=== PATIENT | female | born 1985 | race Caucasian/White ===

== ENCOUNTER 2019-06-17 14:22 | Emergency (ER) | payer OTHER, MEDICAID, SELFPAY ==
[2019-06-17 14:24] VITALS: BP 149/93; PULSE 78; RESP 15; TEMP 36.9; O2SAT 99; BMI 39.9
== END 2019-06-17 18:36 | disposition left against medical advice (07) ==
PROVIDERS: Emergency Provider Emergency Medicine
CPT/HCPCS: 99281

== ENCOUNTER 2021-01-31 21:24 | Emergency (ER) | payer OTHER, MEDICAID, SELFPAY ==
[2021-01-31 21:26] VITALS: BP 134/62; PULSE 92; RESP 17; TEMP 36.1; O2SAT 99; BMI 42.9
--- NOTE | 2021-01-31 22:15 | DI.US.S_ITS ---
PROCEDURE: US PERIPH VENOUS LOW EXTREM RT INDICATIONS: right leg pain TECHNIQUE: Real-time imaging, as well as color and pulse Doppler interrogation, were performed of the lower extremity deep veins from the inguinal ligament to the popliteal fossa. COMPARISON: None. FINDINGS: The common femoral, femoral and popliteal veins are normally compressible, and free of intraluminal thrombus. Color and pulse Doppler demonstrate normal phasic intraluminal flow. There is normal augmentation response to distal compression maneuver. No sonographic abnormalities identified in the soft tissues of the area of concern involving the anterior and anterolateral aspect of the right lower extremity. IMPRESSION: Negative for deep venous thrombosis of the right lower extremity. Dictated by: Jp Solitario M.D. on 01/31/2021 at 23:15 Approved by: Jp Solitario M.D. on 01/31/2021 at 23:16
--- NOTE | 2021-01-31 22:21 | ED.EXTPRO ---
HPI - Extremity Problem General Chief complaint: Extremity Problem,Nontraumatic Stated complaint: sent to r/o blood clot Time Seen by Provider: 01/31/21 22:07 Source: patient Mode of arrival: Ambulatory Limitations: no limitations History of Present Illness HPI Narrative: 35-year-old female nonsmoker presents from the [facility] for evaluation of pain and swelling of her lateral and posterior right knee in the absence of injury. Her providers were concerned about the possibility of a DVT and she was sent here for evaluation. As stated, she denies any specific injury. She states that she has been having symptoms for upwards of 2 weeks and includes pain and numbness along her right lateral thigh, behind her knee and down the right side of her calf. She admits that when she stands she notes swelling in her knee. She has increased pain with ambulation. She denies any history of back pain. She denies fever or chills. She has had no trauma. She denies trouble with control of bowel or bladder. She denies any footdrop. She denies any history of blood clot. She has had no systemic findings such as fever, chills nor nausea or vomiting. Related Data Home Medications Medication Instructions Recorded Confirmed colchicine 0.6 mg capsule 0.6 mg PO DAILY 09/06/20 01/29/21 duloxetine 60 mg capsule,delayed 60 mg PO DAILY 09/06/20 01/29/21 release famotidine 10 mg tablet (Pepcid AC) 10 mg PO DAILY 09/06/20 01/29/21 lamotrigine 150 mg tablet 150 mg PO BID tab 01/29/21 01/29/21 metoprolol tartrate 25 mg tablet 25 mg PO BID 01/29/21 01/29/21 clonidine HCl 0.2 mg tablet 0.2 mg PO TID 01/31/21 01/31/21 meclizine 25 mg tablet 25 mg PO DAILY PRN tab 01/31/21 01/31/21 Allergies Allergy/AdvReac Type Severity Reaction Status Date / Time Penicillins Allergy Verified 01/31/21 21:26 Sulfa (Sulfonamide Allergy Verified 01/31/21 21:26 Antibiotics) cephalexin AdvReac nausea and Verified 01/31/21 21:26 vomiting doxycycline AdvReac nausea and Verified 01/31/21 21:26 vomiting Review of Systems Review of Systems Narrative: GENERAL: Denies chills, fatigue, malaise, fever, sweats. HEENT: Denies sinus pain, ear pain, sore throat, difficulty swallowing, dizziness. RESPIRATORY: Denies dyspnea, cough, wheezing, hemoptysis, sputum. CARDIOVASCULAR: Denies chest pain, palpitations, orthopnea, edema, GASTROINTESTINAL: Denies nausea, vomiting, abdominal pain, diarrhea, constipation, melena. : Denies dysuria, frequency, incontinence, hematuria, urinary retention. MUSCULOSKELETAL: See HPI SKIN: Denies rash, skin lesions, or other NEUROLOGIC: See HPI PSYCHIATRIC: No concerning psychosocial issues. 12 point review of systems is negative except for those stated above Patient History Social History Smoking Status: Never smoker Smoking Status: Never smoker alcohol intake frequency: holidays/special occasions only Substance Use Type: does not use and marijuana Exam Narrative Exam Narrative: GENERAL: [35 year old patient appears stated age. Well-developed patient, in mild distress. Anxious and tearful HEAD: Atraumatic. Normocephalic. EYES: Pupils equal round and reactive. Extraocular motions intact. No scleral icterus. No injection or drainage. ENT: Nose without bleeding, purulent drainage. Throat without erythema, tonsillar hypertrophy or exudate. Airway patent. NECK: Trachea midline. Non tender CARDIOVASCULAR: Regular rate and rhythm without murmurs, gallops, or rubs. RESPIRATORY: Clear to auscultation. Breath sounds equal bilaterally. No wheezes, rales, or rhonchi. GASTROINTESTINAL: Abdomen soft, non-tender, nondistended. EXTREMITIES: No edema or joint tenderness. BACK: Nontender without deformity or crepitance. No flank tenderness. NEURO: AOx3. SKIN: No rash or erythema of visible areas Initial Vital Signs Initial Vital Signs: Vital Signs Temperature 96.9 F L 01/31/21 21:26 Pulse Rate 92 H 01/31/21 21:26 Respiratory Rate 17 01/31/21 21:26 Blood Pressure 134/62 01/31/21 21:26 Pulse Oximetry 99 01/31/21 21:26 Course Orders Ordered: Discontinued Medications Prednisone (Prednisone 20 Mg Tablet) 40 mg PO NOW ONE Stop: 01/31/21 22:48 Last Admin: 01/31/21 23:06 Dose: Not Given Documented by: ATAYLOR Vital Signs Vital signs: Vital Signs - 8 hr 01/31/21 21:26 01/31/21 23:20 Temperature 96.9 F L Pulse Rate 92 H 110 H Respiratory Rate 17 22 Blood Pressure 134/62 169/110 H Pulse Oximetry 99 99 Discharge Plan Departure Patient Disposition: Home Clinical Impression: Acute right lumbar radiculopathy Instructions: DI for Lumbar Radiculopathy Activity Restrictions/Additional Instructions: *You have been diagnosed with [Right leg pain and tingling, likely a consequence of lumbar radiculopathy ] *What to do: *Please continue to take your regular medications as directed. [ ] New medication prescriptions sent to your pharmacy: [ ] [ ] New medication written as a paper prescription [ x] No new medications given *Please follow up with your primary care provider in 2-3 days, call for an appointment. Let them know you were seen in the Emergency Department and that we ask that you be seen in follow up. We will electronically transmit a record of today's note if your PCP is in our system *If you do not have a primary care provider please contact the [facility] Resource line at [phone]. They will ask some questions about your medical history and help get you set up with a doctor in the community. Please return to the emergency department for increased pain, lower extremity weakness, loss of control of bowel or bladder or other concerning symptoms Prescriptions: No Action duloxetine 60 mg capsule,delayed release(DR/EC) 60 mg PO DAILY RF: 0 famotidine [Pepcid AC] 10 mg tablet 10 mg PO DAILY RF: 0 colchicine 0.6 mg capsule 0.6 mg PO DAILY RF: 0 lamotrigine 150 mg tablet 150 mg PO BID RF: 0 metoprolol tartrate 25 mg tablet 25 mg PO BID RF: 0 meclizine 25 mg tablet 25 mg PO DAILY PRN (Reason: dizziness) RF: 0 clonidine HCl 0.2 mg tablet 0.2 mg PO TID RF: 0 Referrals: Ayush Bae MD [Primary Care Provider] -
[2021-01-31 23:20] VITALS: BP 169/110; PULSE 110; RESP 22; O2SAT 99
--- NOTE | 2021-02-01 00:47 | PC.NURSE ---
Went to discharge patient and Patient became quite upset in tears that we didn't do any more than just the u/s. unwilling to be discharged at this time.
== END 2021-02-01 01:17 | disposition home or self-care (01) ==
PROVIDERS: Emergency Provider Emergency Medicine; PCP Family Medicine
DX: M54.16 Radiculopathy, lumbar region (principal)
CPT/HCPCS: 93971; 99281; 99283

== ENCOUNTER → 2021-05-09 08:28 | Outpatient (CLI) | payer OTHER, MEDICAID, SELFPAY ==
[2021-05-09 19:33] LABS: Add Manual Diff / Slide Review NO; Basophils Absolute Auto 100 /uL (0-100); Eosinophils Absolute Auto 400 /uL (0-450); Eosinophils Percent Auto 5.8 % (2-4); Hematocrit 38.4 % (36-46); Lymphocytes Absolute Auto 2300 /uL (1100-4500); Lymphocytes Percent Auto 37.7 % (25-40); Mean Corpuscular HGB Conc 33.8 % (30-36); Mean Corpuscular Hemoglobin 30.1 PG (26-34); Mean Corpuscular Volume 89.1 fL (80-100); Monocytes Absolute Auto 500 /uL (0-900); Monocytes Percent Auto 8.4 % (3-14); Neutrophils Absolute Auto 2900 /uL (1500-7000); Neutrophils Percent Auto 47.1 % (50-75); Platelet Count 311 X10^3/uL (150-400); Red Cell Distribution Width 13.4 % (11.6-14.8); White Blood Cell Count 6.2 X10^3/uL (4.5-11.0)
[2021-05-09 19:40] LABS: Alanine Aminotransferase 17 IU/L (<35); Albumin Globulin Ratio 1.6 (1.0-2.8); Alkaline Phosphatase 48 U/L (38-126); Aspartate Aminotransferase 24 IU/L (14-36); BUN Creatinine Ratio 11.9 (6-22); Bilirubin Total 0.8 mg/dL (0.2-1.3); Blood Urea Nitrogen 8 mg/dL (7-17); Calcium 9.4 mg/dL (8.4-10.2); Carbon Dioxide 29 mmol/L (22-32); Chloride 100 mmol/L (98-107); Cholesterol 224 mg/dL (140-199); Estimated Glomerular Filt Rate > 60.0 mL/min (>60); Globulin 2.5 g/dL (1.7-4.1); Glucose 89 mg/dL (70-100); HDL Cholesterol 55 mg/dL (40-60); HEMOLYSIS < 15 (0-50); LDL Cholesterol Calculated 144 mg/dL (<100); Potassium 4.2 mmol/L (3.4-5.1); Sodium 136 mmol/L (137-145); Total Protein 6.5 g/dL (6.3-8.2); Triglycerides 127 mg/dL (35-150)
[2021-05-09 19:42] LABS: Hemoglobin A1C% w Est Avg Glu 5.3 % (4.0-6.0)
[2021-05-09 20:10] LABS: Thyroid Stimulating Hormone 0.922 uIU/mL (0.47-4.68)
[2021-05-09 20:13] LABS: Ferritin 23 ng/mL (6-137)
[2021-05-09 20:33] LABS: HIV 1 & 2 Ab/Ag 4th Gen Combo NEGATIVE (NEGATIVE); Hep C Virus Ab w/Reflex Quant NEGATIVE s/c (NEGATIVE)
[2021-05-09 20:45] LABS: Folate 9.8 ng/mL (2.76-20.0); Vitamin B12 > 1000 pg/mL (239-931)
== END ==
PROVIDERS: PCP Family Medicine
DX: G43.009 Migraine without aura, not intractable, without status migrainosus (principal); R42 Dizziness and giddiness; R53.83 Other fatigue
CPT/HCPCS: 80053; 80061; 82607; 82728; 82746; 83036; 84443; 85025; 86803; 87389

== ENCOUNTER → 2021-08-19 14:30 | Outpatient (CLI) | payer OTHER, MEDICAID, SELFPAY | PROVIDERS: PCP Family Medicine; Visit Provider Family Medicine | DX: J02.9 Acute pharyngitis, unspecified (principal) | CPT/HCPCS: 87070 ==

== ENCOUNTER → 2021-10-24 09:28 | Outpatient (CLI) | payer OTHER, MEDICAID, SELFPAY ==
--- NOTE | 2021-10-24 09:29 | DI.MRI.S_ITS ---
PROCEDURE: MR ABDOMEN WO/W CON INDICATIONS: right upper mid quadrant pain and mass TECHNIQUE: Coronal HASTE, axial 2D FLASH in- and [id number]; axial breath-hold T2 FSE. Dynamic axial VIBE during the administration of contrast; post-contrast coronal VIBE or 2D FLASH with fat saturation from the hepatic dome to the iliac crests. Optional diffusion weighted imaging and ADC may be performed. COMPARISON: [facility], CT, CT ANGIO CHEST ABDOMEN PELVIS, 04/14/2020, 12:32. [facility], CT, CT ABDOMEN PELVIS WITH CONTRAST, 06/04/2021, 16:46. FINDINGS: Image quality: Excellent. Lung bases: No basal pleural effusions. Solid organs: Liver background signal is unremarkable. 4.6 cm hemangioma in hepatic segment 7 is not significantly changed in size since 04/14/2020. No gallstones visualized. Biliary system is non dilated. Pancreas is normal in morphology. Spleen is normal in size and enhancement. No adrenal nodules. Both kidneys demonstrate normal size and enhancement, without hydronephrosis. Nodes and vessels: No retroperitoneal or mesenteric adenopathy by size criteria. Aorta and inferior vena cava are normal in size. Bowel and peritoneum: Unenhanced bowel loops are normal in caliber. No free fluid. Bones and soft tissues: Bone marrow is normal in overall signal. IMPRESSION: 1. Redemonstrated hemangioma in hepatic segment 7, measuring 4.6 cm, not significantly changed in size since at least 04/14/2020. 2. No gallstones visualized. No biliary ductal dilation demonstrated. Dictated by: Benny Jarvis M.D. on 10/24/2021 at 16:06 Approved by: Benny Jarvis M.D. on 10/24/2021 at 16:33
== END ==
PROVIDERS: PCP Family Medicine; Referring Provider Physician Assistant; Visit Provider Physician Assistant
DX: D18.09 Hemangioma of other sites (principal); R19.01 Right upper quadrant abdominal swelling, mass and lump; R10.11 Right upper quadrant pain
CPT/HCPCS: 74183; A9579